=== PATIENT | male | born 1995 | race Caucasian/White ===

== ENCOUNTER → 2020-09-10 13:45 | Outpatient (BNVA) | payer OTHER, SELFPAY | PROVIDERS: Visit Provider Internal Medicine Endocrinology, Diabetes & Metabolism | DX: F64.0 Transsexualism (principal); Z79.899 Other long term (current) drug therapy | CPT/HCPCS: 99212 ==

== ENCOUNTER 2020-09-22 13:02 | Outpatient (REF) | payer OTHER, SELFPAY ==
[2020-09-22 15:26] LABS: Alanine Aminotransferase 20 U/L (0-40); Albumin Level 4.6 g/dL (3.5-5.0); Alkaline Phosphatase 59 U/L (39-117); Anion Gap 13 (12-20); Aspartate Amino Transferase 16 U/L (5-37); Bilirubin Total 0.3 mg/dL (0.0-1.0); Blood Urea Nitrogen 18 mg/dL (9-16); Calcium 9.3 mg/dL (8.4-10.2); Carbon Dioxide 28 mmol/L (22-29); Chloride 102 mmol/L (96-108); Cholesterol 130 mg/dL; Estimated Glomerular Filt Rate > 60; Glucose Random 91 mg/dL (60-115); HDL Cholesterol 52 mg/dL; LDL Cholesterol Calculated 63 mg/dl; Potassium 4.4 mmol/l (3.3-5.1); Sodium 139 mmol/L (135-145); Total Protein 7.4 g/dL (6.5-8.0); Triglycerides 75 mg/dL
[2020-09-23 23:11] LABS: Sex Hormone Binding Globulin 59 nmol/L (10-50)
[2020-09-27 16:41] LABS: Estrogen 771.2 pg/mL (60-190)
[2020-09-29 19:09] LABS: Testosterone, Free 55.3 pg/mL (35.0-155.0); Testosterone, Total 350 ng/dL (250-1100)
[2020-10-01 22:56] LABS: Estradiol Free 1.44 pg/mL; Estradiol, Ultrasensitive 60 pg/mL
== END 2020-09-22 13:03 | disposition home or self-care (01) ==
LOC: HO.LAB 13:02
PROVIDERS: Visit Provider Internal Medicine Endocrinology, Diabetes & Metabolism
DX: F64.0 Transsexualism (principal)
CPT/HCPCS: 80053; 80061; 82670; 82672; 84270; 84402; 84403

== ENCOUNTER 2020-11-25 10:35 | Outpatient (REF) | payer OTHER, SELFPAY ==
[2020-11-25 12:26] LABS: Cholesterol 122 mg/dL; HDL Cholesterol 59 mg/dL; LDL Cholesterol Calculated 51 mg/dl; Triglycerides 63 mg/dL
[2020-11-26 11:27] LABS: Sex Hormone Binding Globulin 66 nmol/L (10-50)
[2020-11-28 21:58] LABS: Estradiol Ultra Sensitive 68 pg/mL (< OR = 29)
[2020-11-29 10:33] LABS: Testosterone, Free 27.4 pg/mL (35.0-155.0); Testosterone, Total 203 ng/dL (250-1100)
[2020-11-29 17:12] LABS: Estrogen 582.5 pg/mL (60-190)
== END 2020-11-25 10:36 | disposition home or self-care (01) ==
LOC: HO.LAB 10:35
PROVIDERS: Visit Provider Internal Medicine Endocrinology, Diabetes & Metabolism
DX: F64.0 Transsexualism (principal)
CPT/HCPCS: 36415; 80061; 82670; 82672; 84270; 84402; 84403

== ENCOUNTER 2021-04-23 13:38 | Outpatient (REF) | payer OTHER, SELFPAY ==
[2021-04-23 15:24] LABS: Alanine Aminotransferase 11 U/L (0-40); Albumin Level 4.5 g/dL (3.5-5.0); Alkaline Phosphatase 62 U/L (39-117); Anion Gap 11 (12-20); Aspartate Amino Transferase 13 U/L (5-37); Bilirubin Total 0.3 mg/dL (0.0-1.0); Blood Urea Nitrogen 14 mg/dL (9-16); Calcium 9.8 mg/dL (8.4-10.2); Carbon Dioxide 26 mmol/L (22-29); Chloride 103 mmol/L (96-108); Cholesterol 125 mg/dL; Estimated Glomerular Filt Rate > 60; Glucose Random 95 mg/dL (60-115); HDL Cholesterol 61 mg/dL; LDL Cholesterol Calculated 55 mg/dl; Potassium 4.3 mmol/L (3.3-5.1); Sodium 136 mmol/L (135-145); Total Protein 7.5 g/dL (6.5-8.0); Triglycerides 49 mg/dL
[2021-04-24 19:11] LABS: Sex Hormone Binding Globulin 65 nmol/L (10-50)
[2021-04-26 21:47] LABS: Estradiol Ultra Sensitive 76 pg/mL (< OR = 29)
[2021-04-27 14:41] LABS: Testosterone, Total 133 ng/dL (250-1100)
== END 2021-04-23 13:39 | disposition home or self-care (01) ==
LOC: HO.LAB 13:38
PROVIDERS: Visit Provider Internal Medicine Endocrinology, Diabetes & Metabolism
DX: F64.0 Transsexualism (principal); Z79.899 Other long term (current) drug therapy
CPT/HCPCS: 36415; 80053; 80061; 82670; 84270; 84402; 84403; 99212

== ENCOUNTER → 2021-12-23 08:47 | Outpatient (BNVA) | payer OTHER, SELFPAY | PROVIDERS: Visit Provider Internal Medicine | DX: F64.0 Transsexualism (principal) | CPT/HCPCS: 99212 ==

== ENCOUNTER 2022-01-07 08:48 | Outpatient (REF) | payer OTHER, SELFPAY ==
[2022-01-07 10:25] LABS: Alanine Aminotransferase 16 U/L (0-40); Albumin Level 4.6 g/dL (3.5-5.0); Alkaline Phosphatase 73 U/L (39-117); Anion Gap 12 (12-20); Aspartate Amino Transferase 14 U/L (5-37); Bilirubin Total 0.3 mg/dL (0.0-1.0); Blood Urea Nitrogen 10 mg/dL (9-16); Calcium 9.5 mg/dL (8.4-10.2); Carbon Dioxide 25 mmol/L (22-29); Chloride 104 mmol/L (96-108); Cholesterol 132 mg/dL; Estimated Glomerular Filt Rate > 60; Glucose Random 100 mg/dL (60-115); HDL Cholesterol 59 mg/dL; LDL Cholesterol Calculated 64 mg/dl; Potassium 4.7 mmol/L (3.3-5.1); Sodium 136 mmol/L (135-145); Total Protein 7.7 g/dL (6.5-8.0); Triglycerides 48 mg/dL
[2022-01-08 18:52] LABS: Follicle Stimulating Hormone 0.8 mIU/mL (1.6-8.0); Lutenizing Hormone 3.3 mIU/mL (1.5-9.3); Prolactin 6.9 ng/mL (2.0-18.0); Sex Hormone Binding Globulin 56 nmol/L (10-50)
[2022-01-08 19:21] LABS: LDL Cholesterol Direct 56 mg/dL (<100)
[2022-01-12 15:06] LABS: Testosterone, Total 291 ng/dL (250-1100)
[2022-01-12 21:57] LABS: Estradiol Ultra Sensitive 102 pg/mL (< OR = 29)
== END 2022-01-07 08:49 | disposition home or self-care (01) ==
LOC: HO.LAB 08:48
PROVIDERS: Visit Provider Internal Medicine
DX: F64.0 Transsexualism (principal)
CPT/HCPCS: 36415; 80053; 80061; 82670; 83001; 83002; 83721; 84146; 84270; 84402; 84403

== ENCOUNTER → 2022-01-21 11:58 | Outpatient (BNVA) | payer OTHER, SELFPAY | PROVIDERS: Visit Provider Internal Medicine ==

== ENCOUNTER 2022-03-19 07:40 | Outpatient (REF) | payer OTHER, SELFPAY ==
[2022-03-19 08:40] LABS: Alanine Aminotransferase 18 U/L (0-40); Albumin Level 4.2 g/dL (3.5-5.0); Alkaline Phosphatase 77 U/L (39-117); Anion Gap 12 (12-20); Aspartate Amino Transferase 15 U/L (5-37); Bilirubin Total 0.3 mg/dL (0.0-1.0); Blood Urea Nitrogen 13 mg/dL (9-16); Calcium 9.3 mg/dL (8.4-10.2); Carbon Dioxide 24 mmol/L (22-29); Chloride 105 mmol/L (96-108); Estimated Glomerular Filt Rate > 60; Glucose Random 102 mg/dL (60-115); Potassium 3.9 mmol/L (3.3-5.1); Sodium 137 mmol/L (135-145); Total Protein 7.5 g/dL (6.5-8.0)
[2022-03-22 08:51] LABS: Sex Hormone Binding Globulin 42 nmol/L (10-50)
[2022-03-24 21:37] LABS: Estradiol Ultra Sensitive 62 pg/mL (< OR = 29)
[2022-03-26 19:06] LABS: Testosterone, Free 21.9 pg/mL (35.0-155.0); Testosterone, Total 148 ng/dL (250-1100)
== END 2022-03-19 07:41 | disposition home or self-care (01) ==
LOC: HO.LAB 07:40
PROVIDERS: Visit Provider Internal Medicine
DX: F64.0 Transsexualism (principal)
CPT/HCPCS: 36415; 80053; 82670; 84270; 84402; 84403

== ENCOUNTER → 2022-04-07 07:38 | Outpatient (BNVA) | payer OTHER, SELFPAY | PROVIDERS: Visit Provider Internal Medicine | DX: Z13.89 Encounter for screening for other disorder (principal) ==

== ENCOUNTER 2022-05-19 07:52 | Outpatient (REF) | payer OTHER, SELFPAY ==
[2022-05-19 09:49] LABS: Alanine Aminotransferase 23 U/L (0-40); Albumin Level 4.5 g/dL (3.5-5.0); Alkaline Phosphatase 86 U/L (39-117); Anion Gap 12 (12-20); Aspartate Amino Transferase 17 U/L (5-37); Bilirubin Total 0.3 mg/dL (0.0-1.0); Blood Urea Nitrogen 13 mg/dL (9-16); Calcium 9.2 mg/dL (8.4-10.2); Carbon Dioxide 25 mmol/L (22-29); Chloride 107 mmol/L (96-108); Estimated Glomerular Filt Rate > 60; Glucose Random 108 mg/dL (60-115); Potassium 4.1 mmol/L (3.3-5.1); Sodium 140 mmol/L (135-145); Total Protein 7.6 g/dL (6.5-8.0)
[2022-05-20 18:46] LABS: Sex Hormone Binding Globulin 56 nmol/L (10-50)
[2022-05-24 18:21] LABS: Testosterone, Free 16.5 pg/mL (35.0-155.0); Testosterone, Total 149 ng/dL (250-1100)
[2022-05-27 04:41] LABS: Estradiol Free 1.03 pg/mL; Estradiol, Ultrasensitive 56 pg/mL (< OR = 29)
== END 2022-05-19 07:53 | disposition home or self-care (01) ==
LOC: HO.LAB 07:52
PROVIDERS: Visit Provider Internal Medicine
DX: F64.0 Transsexualism (principal)
CPT/HCPCS: 36415; 80053; 82670; 82681; 84270; 84402; 84403

== ENCOUNTER 2022-08-12 08:33 | Outpatient (REF) | payer OTHER, SELFPAY ==
[2022-08-12 10:05] LABS: Alanine Aminotransferase 18 U/L (0-40); Albumin Level 4.5 g/dL (3.5-5.0); Alkaline Phosphatase 104 U/L (39-117); Anion Gap 17 (12-20); Aspartate Amino Transferase 13 U/L (5-37); Bilirubin Total < 0.2 mg/dL (0.0-1.0); Blood Urea Nitrogen 13 mg/dL (9-16); Calcium 9.4 mg/dL (8.4-10.2); Carbon Dioxide 21 mmol/L (22-29); Chloride 103 mmol/L (96-108); Estimated Glomerular Filt Rate > 60; Glucose Random 114 mg/dL (60-115); Potassium 4.3 mmol/L (3.3-5.1); Sodium 137 mmol/L (135-145); Total Protein 7.8 g/dL (6.5-8.0)
[2022-08-13 18:57] LABS: Sex Hormone Binding Globulin 38 nmol/L (10-50)
[2022-08-19 20:37] LABS: Testosterone, Free 11.8 pg/mL (35.0-155.0); Testosterone, Total 76 ng/dL (250-1100)
[2022-08-19 22:16] LABS: Estradiol Free 1.31 pg/mL; Estradiol, Ultrasensitive 58 pg/mL (< OR = 29)
== END 2022-08-12 08:34 | disposition home or self-care (01) ==
LOC: HO.LAB 08:33
PROVIDERS: Visit Provider Internal Medicine
DX: F64.0 Transsexualism (principal)
CPT/HCPCS: 36415; 80053; 82670; 82681; 84270; 84402; 84403

== ENCOUNTER 2022-10-01 16:34 | Outpatient (REF) | payer OTHER, SELFPAY ==
[2022-10-02 09:16] LABS: Sex Hormone Binding Globulin 43 nmol/L (10-50)
[2022-10-16 22:14] LABS: Estradiol, Ultrasensitive 24 pg/mL (< OR = 29)
[2022-11-01 08:56] LABS: Testosterone, Free 77.4; Testosterone, Total 479
== END 2022-10-01 16:35 | disposition home or self-care (01) ==
LOC: HO.LAB 16:34
PROVIDERS: Visit Provider Internal Medicine
DX: F64.0 Transsexualism (principal)
CPT/HCPCS: 36415; 82670; 82681; 84270; 84402; 84403

== ENCOUNTER → 2022-10-04 10:07 | Outpatient (BNVA) | payer OTHER, SELFPAY | PROVIDERS: Visit Provider Internal Medicine | DX: F64.0 Transsexualism (principal) | CPT/HCPCS: 99212 ==

== ENCOUNTER 2022-12-31 12:25 | Outpatient (REF) | payer OTHER, SELFPAY ==
[2023-01-02 18:04] LABS: Sex Hormone Binding Globulin 43 nmol/L (10-50)
[2023-01-08 17:34] LABS: Testosterone, Free 24.8 pg/mL (35.0-155.0); Testosterone, Total 154 ng/dL (250-1100)
[2023-01-15 21:43] LABS: Estradiol Free 0.22 pg/mL; Estradiol, Ultrasensitive 9 pg/mL (< OR = 29)
== END 2022-12-31 12:26 | disposition home or self-care (01) ==
LOC: HO.LAB 12:25
PROVIDERS: Visit Provider Internal Medicine
DX: F64.0 Transsexualism (principal)
CPT/HCPCS: 36415; 82670; 82681; 84270; 84402; 84403

== ENCOUNTER 2023-03-25 13:47 | Outpatient (REF) | payer OTHER, SELFPAY ==
[2023-03-27 05:38] LABS: Sex Hormone Binding Globulin 54 nmol/L (10-50)
[2023-04-05 23:18] LABS: Testosterone, Free 22.4 pg/mL (35.0-155.0); Testosterone, Total 159 ng/dL (250-1100)
[2023-04-07 21:12] LABS: Estradiol Free 0.15 pg/mL; Estradiol, Ultrasensitive 9 pg/mL (< OR = 29)
== END 2023-03-25 13:48 | disposition home or self-care (01) ==
LOC: HO.LAB 13:47
PROVIDERS: Visit Provider Internal Medicine
DX: F64.0 Transsexualism (principal)
CPT/HCPCS: 36415; 82670; 82681; 84270; 84402; 84403

== ENCOUNTER → 2023-03-28 09:25 | Outpatient (BNVA) | payer OTHER, SELFPAY | PROVIDERS: Visit Provider Internal Medicine | DX: F64.0 Transsexualism (principal) | CPT/HCPCS: 99212 ==

== ENCOUNTER → 2023-04-04 08:41 | Outpatient (BNVA) | payer OTHER, SELFPAY | PROVIDERS: Visit Provider Internal Medicine ==

== ENCOUNTER 2023-07-04 11:42 | Outpatient (REF) | payer OTHER, SELFPAY ==
[2023-07-04 13:38] LABS: Alanine Aminotransferase 21 U/L (0-40); Albumin Level 4.1 g/dL (3.5-5.0); Alkaline Phosphatase 93 U/L (39-117); Anion Gap 12 (12-20); Aspartate Amino Transferase 16 U/L (5-37); Bilirubin Total 0.3 mg/dL (0.0-1.0); Blood Urea Nitrogen 11 mg/dL (9-16); Calcium 9.3 mg/dL (8.4-10.2); Carbon Dioxide 22 mmol/L (22-29); Chloride 109 mmol/L (96-108); Estimated Glomerular Filt Rate > 60; Glucose Random 93 mg/dL (60-115); Potassium 4.2 mmol/L (3.3-5.1); Sodium 139 mmol/L (135-145); Total Protein 7.5 g/dL (6.5-8.0)
[2023-07-05 18:18] LABS: Sex Hormone Binding Globulin 38 nmol/L (10-50)
[2023-07-08 23:59] LABS: Estradiol Ultra Sensitive 186 pg/mL (< OR = 29)
[2023-07-14 14:09] LABS: Testosterone, Total 158 ng/dL (250-1100)
== END 2023-07-04 11:43 | disposition home or self-care (01) ==
LOC: HO.LAB 11:42
PROVIDERS: Visit Provider Internal Medicine
DX: F64.0 Transsexualism (principal)
CPT/HCPCS: 36415; 80053; 82670; 84270; 84402; 84403

== ENCOUNTER 2023-07-14 12:50 | Outpatient (AMB) | payer OTHER, SELFPAY ==
--- NOTE | 2023-07-14 12:50 | MHC.OFFVIS ---
Intake Intake Visit Reasons: F/U Female Transgender Intake Note: F/U Female Transgender. 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 She initially began her hormonal transition in 2018. She began hormonal therapy in 2019. Currently using Estradiol valerate 5 mg IM once a week. She is also using spironolactone 100 mg PO TID. She is a current daily cigarette smoker, and is working on quitting. She has noted improvement in her breast development and is happy with this. She reports galactorrhea that started at hormone initiation, but it resolved shortly thereafter. This has not recurred in many years. She has had issues with the transdermal patches not adhering well and often falling off. Denies any family history of prostate or breast cancer. Denies any personal history of blood clot, CAD, CVA or cholelithiasis. Denies any swelling or tenderness in the legs. Denies any SOB. She reports a very strong libido, and also minimal improvement in facial hair. She continues to shave daily. She does report she occasionally still has an erection. Labs: Laboratory Tests 03/25/23 07/04/23 13:57 11:56 Estradiol Ultra LC MSMS 186 H Total Testosterone 159 L Fr Testosterone Di bret 22.4 L PFSH Medical History Rvza-al-rngifl transgender person Surgical History Hx of adenoidectomy Family History Father Bipolar disorder Mother FHx: mental illness Social History Alcohol intake: current Alcohol intake frequency: a few times a week Patient Tobacco Use Status: Current everyday Tobacco user Substance Use Type: Marijuana Assessment & Plan Assessment & Plan (1) Erik-ib-bvyirl transgender person: Code(s): F64.0 - Transsexualism Plan: Female Transgender patient currently on hormonal transition therapy with Estradiol and Spironolactone for approximately 3 years. She was switched to Estradiol valerate 5 mg once a week and estradiol levels are now at goal. Will continue. I will provide a 6 month refill to bridge her to her next provider as I am leaving the practice. Goal Estradiol is 100-200 pg/mL, with goal Testosterone total <50 ng/dL. She will remain in spironolactone 100 mg PO TID. We did discuss that the use of estradiol does drastically increase her risk of blood clot, with studies showing an increase of 20x from baseline in transgender females using oral estradiol. Her risk is further increased by her active daily cigarette smoking. I advised that she immediately stop smoking cigarettes to help reduce this risk, as she is at risk for blood clot, PE and ultimately . She verbalizes understanding and states she will work on this. We also reviewed the risk of breast cancer, with recommendations for routine breast exams and mammograms, CAD, CVA, cholelithiasis, HTG and also prostate cancer. Current recommendations are for yearly prostate exams starting at age 50. Estradiol therapy in trans females can induce lactotroph hyperplasia and growth, leading to the development of a prolactinoma. Levels remain WNL. All of her questions were answered. She is in agreement with this plan of care. I spent 30 minutes in reviewing the record, seeing the patient and documenting in the medical record. Medications: Refilled syringe with needle (BD Tuberculin Syringe) As directed 100 ea 6RF estradiol valerate 5 mg (0.5 mL) IM QWEEK 30 days 2.5 mL 6RF F64.0 - Transsexualism Telehealth Telehealth Location of provider rendering services: practice address Location of patient: address on file Patient Identification confirmed using: Name, : Yes Telehealth method: voice only Patient verbally consented to treatment: Yes Patient verbally consented to billing insurance company: Yes Patient informed of any privacy concerns related to visit: Yes Coding Level of Care Code Tele Est Pt Level 3 (11046) Diagnoses Ptrp-te-lekobj transgender person F64.0
== END 2023-07-14 13:37 | disposition home or self-care (01) ==
LOC: HO.ENCR 12:50
PROVIDERS: Visit Provider Internal Medicine
DX: F64.0 Transsexualism (principal)
CPT/HCPCS: 99213

== ENCOUNTER → 2023-07-14 12:50 | Outpatient (BNVA) | payer OTHER, SELFPAY | PROVIDERS: Visit Provider Internal Medicine ==